=== PATIENT | female | born 1995 | race Caucasian/White ===

== ENCOUNTER 2017-03-14 14:52 | Emergency (ER) | payer OTHER ==
[2017-03-14 15:12] VITALS: BP 102/65; PULSE 103; TEMP 98.3; BMI 18.0
[2017-03-14] MEDS ORDERED: morphine CARPU-JECT 4 MG/1 ML DISP.SYRIN IVPUSH ONE (18:44)
--- NOTE | 2017-03-14 18:46 | PDOC ---
Attending Attestation - Resident Resident Name: Michelle Lincoln - ED Attending Attestation I have performed the following: I have examined & evaluated the patient, The case was reviewed & discussed with the resident, I agree w/resident's findings & plan, Exceptions are as noted - HPI HPI: 21 yo F presents with recurrent bartholin cyst. She states she has been having pain for past 2 days with swelling. She states that it has been drained in the past, had to have the word catheter removed early because it was too difficult to sit, very painful. Denies fever. - Physicial Exam PE: GENERAL: Awake, alert, and fully oriented, in no acute distress HEAD: No signs of trauma EYES: PERRLA, EOMI, sclera anicteric, conjunctiva clear ENT: Auricles normal inspection, hearing grossly normal, nares patent, oropharynx clear without exudates. Moist mucosa NECK: Normal ROM, supple, no lymphadenopathy, JVD, or masses LUNGS: Breath sounds equal, clear to auscultation bilaterally. No wheezes, and no crackles HEART: Regular rate and rhythm, normal S1 and S2, no murmurs, rubs or gallops ABDOMEN: Soft, nontender, normoactive bowel sounds. No guarding, no rebound. No masses EXTREMITIES: Normal range of motion, no edema. No clubbing or cyanosis. No cords, erythema, or tenderness NEUROLOGICAL: Cranial nerves II through XII grossly intact. Normal speech, normal gait SKIN: Warm, Dry, normal turgor, no rashes or lesions noted. : +R labial swelling and tenderness with small, deep indurated area. - Medical Decision Making Attempted I&D of the bartholin, unable to obtain any drainage. Also attempted needle aspiration. Aborted any further attempts due to pain discomfort and inability to get any drainage. D/w manufacturing project manager, stated that it may be too early to drain - recommended either keflex, sitz baths, and f/u (patient has appt in 3 days), or can see patient in ED in 1 hour. D/w patient, she prefers abx and outpatient f/u.
[2017-03-14] MEDS ORDERED: morphine SULFATE 4 MG/ML VIAL ONE (18:49)
--- NOTE | 2017-03-14 18:55 | PDOC ---
History of Present Illness - General Chief Complaint: Abscess Boil Stated Complaint: VAGINAL PAIN Time Seen by Provider: 03/14/17 17:34 - History of Present Illness Initial Comments: 03/14/17 18:44 21yo young woman who presents with recurrent R bartholin abscess. Patient had abscess in that location 1 month ago, which was I&D. A Word catheter was placed , but she only tolerated it for 2 days and was removed by her DECISION UNIT RN (Dr. Atkins). Reports she noticed increased painful swelling in same location. Denies any fever or chills. Past History - Past Medical History Allergies/Adverse Reactions: Allergies Allergy/AdvReac Type Severity Reaction Status Date / Time No Known Drug Allergies Allergy Verified 03/14/17 15:12 SEAFOOD Allergy Hives Uncoded 03/14/17 15:12 Home Medications: Ambulatory Orders Cephalexin [Keflex] 500 mg PO Q6H #28 capsule 03/14/17 Cephalexin [Keflex] 500 mg PO Q6H #28 capsule 03/14/17 Oxycodone HCl/Acetaminophen [Percocet 5-325 mg Tablet] 1 tab PO Q6H PRN #20 tablet MDD 4 tabs 03/14/17 Asthma: Yes COPD: No - Immunization History Immunization Up to Date: Yes - Suicide/Smoking/Psychosocial Hx Smoking Status: No Smoking History: Never smoked Number of Cigarettes Smoked Daily: 0 Hx Alcohol Use: No Drug/Substance Use Hx: No Substance Use Type: None *Physical Exam - Vital Signs Last Vital Signs Temp Pulse Resp BP Pulse Ox 98.3 F 103 H 20 102/65 98 03/14/17 15:09 03/14/17 15:09 03/14/17 15:09 03/14/17 15:09 03/14/17 17:15 - Physical Exam General Appearance: Yes: Nourished, Appropriately Dressed. No: Apparent Distress Female Pelvic Exam: positive: other (R bartholin abscess approximately 1 x 1cm, ttp, no lymphangitic spread) Procedures - Incision and Drainage I&D Site: Right: Bartholin Betadine cleansed: No (Chloroprep used (Reports Betadine allergy)) Anesthesia: 1% Lidocaine Blade Size: 15 Attempts: 2 Plain Packing: No Progress: 03/14/17 19:34 A 5mm stab incision was made, however was not able to drain the abscess as it was very deep and mobile. Two attempts were made, but patient was not tolerating the procedure despite local anesthetic with 1% lidocaine. Medical Decision Making - Medical Decision Making 03/14/17 19:39 21yo woman with recurrent and painful Right Bartholin abscess that was unable to be drained by I&D. Offered patient to wait for on-call DECISION UNIT RN to evaluate patient, however she was requesting to be d/c. On-call DECISION UNIT RN (Dr. Blandon) suggested to start patient on Keflex and do Sitz baths until her Bar Roller appointment on Thursday. Patient in agreement with plan and will return to ED if symptoms worsen or she develops signs of infection. Patient declined Percocet for pain control. 03/14/17 19:47 *DC/Admit/Observation/Transfer Diagnosis at time of Disposition: Abscess of Bartholin's gland - Prescriptions Prescriptions: Cephalexin [Keflex] 500 mg PO Q6H #28 capsule Cephalexin [Keflex] 500 mg PO Q6H #28 capsule Oxycodone HCl/Acetaminophen [Percocet 5-325 mg Tablet] 1 tab PO Q6H PRN #20 tablet MDD 4 tabs PRN Reason: Pain - Referrals Referrals: Sofía Abdi MD [Staff Physician] - - Patient Instructions Printed Discharge Instructions: DI for Bartholin Gland Cyst Additional Instructions: You have a right Bartholin cyst. Make a Sitz bath using warm water and epsom salts, and submerge yourself at least 2-3 inches. Do this 2-3 times per day to help draw out the cyst. Drainage from the site is expected. Use gauze and/or pads to absorb any drainage. Take Keflex 500mg (an antibiotic) 4 times per day (that is every 6 hours) for 7 days. You can take Tylenol for the pain. Follow-up with your FRAME ALIGNER on Thursday. Let her know that you were started on Keflex. Please return to the Emergency Department if you have worsening symptoms, increase swelling, redness, fever, chills, or any new or concerning symptoms. - Post Discharge Activity
== END 2017-03-14 19:31 | disposition home or self-care (01) ==
LOC: JER 14:52
PROC: 0U9L0ZZ Drainage of Vestibular Gland, Open Approach (ICD-10-PCS; principal; 2017-03-14)
DX: N75.1 Abscess of Bartholin's gland (principal)
CPT/HCPCS: 99282-25

== ENCOUNTER 2017-07-06 11:03 | Emergency (ER) | payer OTHER ==
[2017-07-06 11:13] VITALS: BP 111/72; PULSE 86; TEMP 98.4; BMI 19.2
--- NOTE | 2017-07-06 12:07 | PDOC ---
History of Present Illness - General Chief Complaint: Pain Stated Complaint: CHEST PAIN Time Seen by Provider: 07/06/17 11:51 History Source: Patient Exam Limitations: No Limitations - History of Present Illness Initial Comments: 07/06/17 12:03 this is a 21-year-old woman without significant past medical history of presents emergency Department with right-sided chest pain starting upon awaking this morning. Patient describes pain as a deep ache in the right chest. States she has not eaten and she is not experiencing any hunger as of yet today. She states nothing makes the pain better but deep breath makes the pain increased. She denies any fevers, chills, smoking, shortness of breath, abdominal pain, control use, period of inactivity, recent travel, surgeries. Past History - Past Medical History Allergies/Adverse Reactions: Allergies Allergy/AdvReac Type Severity Reaction Status Date / Time No Known Drug Allergies Allergy Verified 07/06/17 11:09 SEAFOOD Allergy Hives Uncoded 07/06/17 11:09 Home Medications: Ambulatory Orders NK [No Known Home Medication] 07/06/17 Asthma: Yes COPD: No - Immunization History Immunization Up to Date: Yes - Suicide/Smoking/Psychosocial Hx Smoking Status: No Smoking History: Never smoked Number of Cigarettes Smoked Daily: 0 Information on smoking cessation initiated: No Hx Alcohol Use: No Drug/Substance Use Hx: No Substance Use Type: None Review of Systems - Review of Systems Able to Perform ROS?: Yes Is the patient limited Micronesian proficient: No Constitutional: No: Symptoms Reported HEENTM: Yes: See HPI Respiratory: Yes: See HPI Cardiac (ROS): Yes: See HPI ABD/GI: No: Symptoms Reported : No: Symptoms Reported Musculoskeletal: No: Symptoms Reported Integumentary: No: Symptoms Reported Neurological: No: Symptoms reported Endocrine: No: Symptoms Reported Hematologic/Lymphatic: No: Symptoms Reported *Physical Exam - Vital Signs Last Vital Signs Temp Pulse Resp BP Pulse Ox 98.4 F 86 18 111/72 100 07/06/17 11:11 07/06/17 11:11 07/06/17 11:11 07/06/17 11:11 07/06/17 11:11 - Physical Exam General Appearance: Yes: Appropriately Dressed. No: Apparent Distress HEENT: positive: Normal ENT Inspection Neck: positive: Trachea midline, Supple Respiratory/Chest: positive: Lungs Clear, Decreased Breath Sounds (right lower lobe), Dullness (right lower lobe). negative: Respiratory Distress, Accessory Muscle Use Cardiovascular: positive: Regular Rhythm, Regular Rate. negative: Murmur Gastrointestinal/Abdominal: positive: Normal Bowel Sounds, Soft. negative: Tender Musculoskeletal: positive: Normal Inspection. negative: CVA Tenderness Extremity: positive: Normal Capillary Refill, Normal Inspection, Normal Range of Motion Integumentary: positive: Normal Color, Dry, Warm Neurologic: positive: Alert, Normal Response, Motor Strength 08/01 ED Treatment Course - LABORATORY CBC & Chemistry Diagram: 07/06/17 12:09 07/06/17 12:09 - RADIOLOGY Radiology Studies Ordered: Category Date Time Status CHEST PA & LAT [RAD] Stat Radiology 07/06/17 11:59 Ordered Medical Decision Making - Medical Decision Making 07/06/17 12:06 A/P: 21-year-old female without medical history presents with right sided chest pain since awakening Diminished breath sounds at the right lower lobe Dullness to percussion over the right lower lobe Speaking full sentences RRR. No murmur, rub or gallop noted Abdomen soft nontender nondistended Labs including d-dimer, chest x-ray, EKG, urinalysis 07/06/17 14:00 Chest x-ray as read by me: No infiltrate or consolidation present. Ankles are clear. Thoracic scoliosis present. Normal cardiac silhouette. No evidence of pneumothorax. The visualized osseous structures intact Laboratory testing is normal with the exception of 2+blood in urine. patient is currently menstruating. Discharge patient home with follow-up with her primary doctor. *DC/Admit/Observation/Transfer Diagnosis at time of Disposition: Atypical chest pain - Discharge Dispostion Disposition: HOME Condition at time of disposition: Stable Admit: No - Referrals Referrals: ON STAFF,NOT [Primary Care Provider] - - Patient Instructions Printed Discharge Instructions: DI for Atypical Chest Pain Additional Instructions: Laboratory testing and radiologic findings are normal here. Please follow-up to primary doctor for continued evaluation of this pain Return to emergency department for worsening pain, shortness of breath, dizziness, fevers, chills or any other concerns. - Post Discharge Activity
[2017-07-06 12:20] LABS: BASO % 0.2 % (0-2.0); EOS % 4.1 % (0-4.5); HEMATOCRIT 37.2 % (32.4-45.2); HEMOGLOBIN 12.3 GM/dL (10.7-15.3); MONO % 7.1 % (3.8-10.2); NEUT % 57.6 % (42.8-82.8); PLATELET COUNT 320 K/MM3 (134-434); RBC 4.54 M/mm3 (3.60-5.2); RDW 13.6 % (11.6-15.6); WHITE BLOOD COUNT 5.4 K/mm3 (4.0-10.0)
[2017-07-06 12:48] LABS: ALBUMIN 3.8 g/dl (3.4-5.0); ANION GAP 4 (8-16); BILIRUBIN,TOTAL 0.3 mg/dL (0.2-1.0); BLOOD UREA NITROGEN 10 mg/dL (7-18); CALCIUM 8.9 mg/dL (8.5-10.1); CHLORIDE 108 mmol/L (98-107); CO2 28 mmol/L (21-32); CREATININE 0.6 mg/dL (0.55-1.02); GLUCOSE,RANDOM 93 mg/dL (74-106); POTASSIUM 4.4 mmol/L (3.5-5.1); SGOT/AST 15 U/L (15-37); SGPT/ALT 22 U/L (12-78); SODIUM 140 mmol/L (136-145); TOT PROT 7.2 g/dl (6.4-8.2)
[2017-07-06 12:49] LABS: URINE APPEARANCE CLEAR; URINE BILIRUBIN NEGATIVE (<2.0 mg/dL); URINE BLOOD 3+ (NEGATIVE); URINE COLOR YELLOW; URINE GLUCOSE (UA) NEGATIVE (NEGATIVE); URINE KETONE NEGATIVE (NEGATIVE); URINE LEUK ESTERASE TRACE (NEGATIVE); URINE NITRITE NEGATIVE (NEGATIVE); URINE UROBILINOGEN NEGATIVE mg/dL (0.2-1.0)
[2017-07-06 12:50] LABS: ALK PHOS 95 U/L (45-117)
[2017-07-06 12:51] LABS: HCG,QUALITATIVE URINE NEGATIVE
[2017-07-06 12:58] LABS: URINE PROTEIN 1+ (NEGATIVE)
[2017-07-06 12:59] LABS: EPI CELLS RARE /HPF (FEW); URINE MUCUS FEW
--- NOTE | 2017-07-06 23:44 | EKG ---
Test Reason : Blood Pressure : / mmHG Vent. Rate : 067 BPM Atrial Rate : 067 BPM P-R Int : 124 ms QRS Dur : 090 ms QT Int : 400 ms P-R-T Axes : 067 069 043 degrees QTc Int : 422 ms NORMAL SINUS RHYTHM POSSIBLE LEFT ATRIAL ENLARGEMENT RSR' OR QR PATTERN IN V1 SUGGESTS RIGHT VENTRICULAR CONDUCTION DELAY BORDERLINE ECG NO PREVIOUS ECGS AVAILABLE Confirmed by WILLIE XIAO MD ([id number]) on 07/06/2017 11:44:09 PM Referred By: Confirmed By:WILLIE XIAO MD
== END 2017-07-06 14:06 | disposition home or self-care (01) ==
LOC: JERFT 11:03
DX: R07.89 Other chest pain (principal)
CPT/HCPCS: 36415; 71046-TC-FY; 80053; 81003; 81015; 82550; 83735; 84484; 84703; 85025; 85379; 93005; 93010; 99282-25

== ENCOUNTER 2018-03-16 21:22 | Emergency (ER) | payer OTHER ==
[2018-03-16 21:29] VITALS: BP 112/59; PULSE 87; TEMP 98.3; BMI 19.0
--- NOTE | 2018-03-16 21:29 | PDOC ---
Rapid Medical Evaluation Chief Complaint: Pain, Acute Medical Evaluation: Allergies Allergy/AdvReac Type Severity Reaction Status Date / Time No Known Drug Allergies Allergy Verified 10/29/17 13:01 SEAFOOD Allergy Hives Uncoded 10/29/17 13:01 03/16/18 21:26 I have performed a brief in-person evaluation of this patient. The patient presents with a chief complaint of:12 weeks preg with abd pain / + dysuruia / no bleeding Pertinent physical exam findings: abd soft/ no CVAT I have ordered the following: UA/ Urine Cx The patient will proceed to the ED for further evaluation. 03/16/18 21:29
[2018-03-16 21:49] LABS: URINE APPEARANCE CLEAR; URINE BILIRUBIN NEGATIVE (<2.0 mg/dL); URINE COLOR YELLOW; URINE GLUCOSE (UA) NEGATIVE (NEGATIVE); URINE KETONE TRACE (NEGATIVE); URINE LEUK ESTERASE 1+ (NEGATIVE); URINE NITRITE NEGATIVE (NEGATIVE); URINE PROTEIN NEGATIVE (NEGATIVE); URINE UROBILINOGEN NEGATIVE mg/dL (0.2-1.0)
[2018-03-16 22:13] LABS: EPI CELLS RARE /HPF (FEW); URINE BACTERIA RARE /hpf (NONE SEEN); URINE MUCUS RARE
--- NOTE | 2018-03-16 23:22 | PDOC ---
History of Present Illness - General Chief Complaint: Pain, Acute Stated Complaint: 12 WEEKS ABD PAIN Time Seen by Provider: 03/16/18 23:10 History Source: Patient - History of Present Illness Initial Comments: 03/16/18 23:25 22 year old female c/o suprapubic pain, dysuria x 1 day with abdominal discomfort. Had + IUP on u/s with breaker oiler. denies vaginal bleeding, flank pain, fever/ chills, NVD breaker oiler dr. snowden no pmhx 03/16/18 23:47 Past History - Past Medical History Allergies/Adverse Reactions: Allergies Allergy/AdvReac Type Severity Reaction Status Date / Time No Known Drug Allergies Allergy Verified 03/16/18 21:29 SEAFOOD Allergy Hives Uncoded 03/16/18 21:29 Home Medications: Ambulatory Orders Nitrofurantoin Monohyd/M-Cryst [Macrobid -] 100 mg PO BID #20 capsule 03/17/18 Asthma: Yes COPD: No - Immunization History Immunization Up to Date: Yes - Suicide/Smoking/Psychosocial Hx Smoking Status: No Smoking History: Never smoked Have you smoked in the past 12 months: No Number of Cigarettes Smoked Daily: 0 Information on smoking cessation initiated: No Hx Alcohol Use: No Drug/Substance Use Hx: No Substance Use Type: None Review of Systems - Review of Systems Able to Perform ROS?: Yes Is the patient limited Bermudian proficient: No Constitutional: No: Symptoms Reported, See HPI, Chills, Diaphoresis, Fever, Loss of Appetite, Malaise, Night Sweats, Weakness, Weight Stable, Unintentional Wgt. Loss, Unexplained wgt Loss, Other : Yes: Dysuria, Other (suprapubic pain) Musculoskeletal: No: Symptoms Reported, See HPI, Back Pain, Gout, Joint Pain, Joint Swelling, Muscle Pain, Muscle Weakness, Neck Pain, Joint Stiffness, Other *Physical Exam - Vital Signs Last Vital Signs Temp Pulse Resp BP Pulse Ox 98.3 F 87 16 112/59 L 100 03/16/18 21:27 03/16/18 21:27 03/16/18 21:27 03/16/18 21:27 03/16/18 21:27 - Physical Exam General Appearance: Yes: Appropriately Dressed Gastrointestinal/Abdominal: positive: Normal Bowel Sounds, Soft, Other (mild suprapubic pain). negative: Tender Moderate Sedation - Procedure Monitoring Vital Signs: Procedure Monitoring Vital Signs Temperature 98.3 F 03/16/18 21:27 Pulse Rate 87 03/16/18 21:27 Respiratory Rate 16 03/16/18 21:27 Blood Pressure 112/59 L 03/16/18 21:27 O2 Sat by Pulse Oximetry (%) 100 03/16/18 21:27 ED Treatment Course - LABORATORY CBC & Chemistry Diagram: 03/17/18 00:16 - ADDITIONAL ORDERS Additional order review: Laboratory Results 03/16/18 21:35 Urine Color Yellow Urine Appearance Clear Urine pH 5.0 Ur Specific [place] 1.017 Urine Protein Negative Urine Glucose (UA) Negative Urine Ketones Trace H Urine Blood Negative Urine Nitrite Negative Urine Bilirubin Negative Urine Urobilinogen Negative Ur Leukocyte Esterase 1+ H Urine WBC (Auto) 1 Urine RBC (Auto) 1 Ur Epithelial Cells Rare Urine Bacteria Rare Urine Mucus Rare Progress Note - Progress Note Progress Note: A: pelvic pain P: UA/ ucx pelvic us cbc beta Medical Decision Making - Medical Decision Making 03/17/18 00:59 Live intrauterine gestation at 11 weeks and 2 day *DC/Admit/Observation/Transfer Diagnosis at time of Disposition: Pelvic pain Normal IUP (intrauterine ) on ultrasound Qualifiers: Trimester: first trimester Qualified Code(s): Z34.91 - Encounter for supervision of normal , unspecified, first trimester UTI (urinary tract infection) Qualifiers: Urinary tract infection type: acute cystitis Hematuria presence: without hematuria Qualified Code(s): N30.00 - Acute cystitis without hematuria - Discharge Dispostion Disposition: HOME - Prescriptions Prescriptions: Nitrofurantoin Monohyd/M-Cryst [Macrobid -] 100 mg PO BID #20 capsule - Referrals - Patient Instructions Printed Discharge Instructions: Urinary Tract Infection Additional Instructions: drink plenty of fluids take macrobid as prescribed. follow up with your obgyn as soon as possible. - Post Discharge Activity Forms/Work/School Notes: Back to Work
[2018-03-17 00:25] LABS: BASO % 0.3 % (0-2.0); EOS % 3.1 % (0-4.5); HEMATOCRIT 34.8 % (32.4-45.2); HEMOGLOBIN 12.2 GM/dL (10.7-15.3); LYMPH % 24.2 % (8-40); MCH 28.7 pg (25.7-33.7); MCHC 35.1 g/dl (32.0-36.0); MEAN CELL VOLUME 81.8 fl (80-96); MEAN PLT VOLUME 8.6 fl (7.5-11.1); MONO % 6.6 % (3.8-10.2); NEUT % 65.8 % (42.8-82.8); PLATELET COUNT 287 K/MM3 (134-434); RBC 4.25 M/mm3 (3.60-5.2); RDW 13.4 % (11.6-15.6); WHITE BLOOD COUNT 7.6 K/mm3 (4.0-10.0)
== END 2018-03-17 02:13 | disposition home or self-care (01) ==
LOC: JER 21:22
DX: O26.891 Other specified pregnancy related conditions, first trimester (principal); O23.31 Infections of other parts of urinary tract in pregnancy, first trimester; Z3A.12 12 weeks gestation of pregnancy
CPT/HCPCS: 36415; 76801-TC; 81003; 81015; 84702; 85025; 86850; 86900; 86901; 87077; 87086; 99282-25

== ENCOUNTER 2018-04-05 18:06 | Emergency (ER) | payer OTHER ==
--- NOTE | 2018-04-05 18:17 | PDOC ---
Rapid Medical Evaluation Chief Complaint: Abscess Boil Time Seen by Provider: 04/05/18 18:15 Medical Evaluation: Allergies Allergy/AdvReac Type Severity Reaction Status Date / Time No Known Drug Allergies Allergy Verified 03/16/18 21:29 SEAFOOD Allergy Hives Uncoded 03/16/18 21:29 04/05/18 18:15 I have done a brief in-person assessment of this patient. The patient presents with a chief complaint of vaginal abscess x 3 days. G1, 14 weeks with discomfort due to vaginal abscess. Denies fever or chills Pertinent physical exam findings NAD unlabored breathing neurologically intact, a+o x 3 I have ordered the following: none The patient will proceed to the Ed for further evaluation. Dx: vaginal abscess 04/05/18 21:44 Discharge Disposition - Diagnosis Bartholin cyst - Discharge Dispostion Disposition: HOME - Referrals - Patient Instructions Printed Discharge Instructions: DI for Incision and Drainage of a Skin Abscess Additional Instructions: please return to the ER in 2 days for wound reevlaution and packing removal. continue sitz bath and hot showers. follow up with your ob/ industrial laborer as scheduled - Post Discharge Activity Work/School Note: Back to Work
[2018-04-05 18:21] VITALS: BP 102/59; PULSE 114; TEMP 98.2; BMI 19.6
--- NOTE | 2018-04-05 20:03 | PDOC ---
History of Present Illness - General Chief Complaint: Abscess Boil Stated Complaint: ABSCESS VAGINA (14 WKS ) Time Seen by Provider: 04/05/18 18:15 History Source: Patient - History of Present Illness Initial Comments: 04/05/18 20:56 22 year old female c/o right labial swelling and pain x3 days. reports that sitz bath is not helping. history of bartholin cyst last one i&D 3 month ago. patient is 14 week s confirmed IUP. denies vaginal bleeding, pelvic pain, urinary symptoms or abdominal pain at this time. denies fever/ chills Past History - Past Medical History Allergies/Adverse Reactions: Allergies Allergy/AdvReac Type Severity Reaction Status Date / Time No Known Drug Allergies Allergy Verified 03/16/18 21:29 SEAFOOD Allergy Hives Uncoded 03/16/18 21:29 Home Medications: Ambulatory Orders Nitrofurantoin Monohyd/M-Cryst [Macrobid -] 100 mg PO BID #20 capsule 03/17/18 Asthma: Yes COPD: No - Immunization History Immunization Up to Date: Yes - Suicide/Smoking/Psychosocial Hx Smoking Status: No Smoking History: Never smoked Have you smoked in the past 12 months: No Number of Cigarettes Smoked Daily: 0 Information on smoking cessation initiated: No Hx Alcohol Use: No Drug/Substance Use Hx: No Substance Use Type: None *Physical Exam - Vital Signs Last Vital Signs Temp Pulse Resp BP Pulse Ox 98.2 F 114 H 20 102/59 L 99 04/05/18 18:16 04/05/18 18:16 04/05/18 18:16 04/05/18 18:16 04/05/18 18:16 - Physical Exam General Appearance: Yes: Appropriately Dressed Respiratory/Chest: positive: Lungs Clear, Normal Breath Sounds Rectal Exam: positive: other (right labial erythema with fluctuant mass. + right bartholin cyst) Moderate Sedation - Procedure Monitoring Vital Signs: Procedure Monitoring Vital Signs Temperature 98.2 F 04/05/18 18:16 Pulse Rate 114 H 04/05/18 18:16 Respiratory Rate 20 04/05/18 18:16 Blood Pressure 102/59 L 04/05/18 18:16 O2 Sat by Pulse Oximetry (%) 99 04/05/18 18:16 Procedures - Incision and Drainage I&D Site: Right: Bartholin Anesthesia: 2% Lidocaine Blade Size: 11 Iodinated Packin/4 in Plain Packing: Yes Dressing: Yes Progress: 04/05/18 21:01 drained 8 ml of pus . packing left in. patient is following up ob Dr. snowden tomorrow. *DC/Admit/Observation/Transfer Diagnosis at time of Disposition: Bartholin cyst - Discharge Dispostion Disposition: HOME - Referrals - Patient Instructions Printed Discharge Instructions: DI for Incision and Drainage of a Skin Abscess Additional Instructions: please return to the ER in 2 days for wound reevlaution and packing removal. continue sitz bath and hot showers. follow up with your ob/ assembly line driver as scheduled - Post Discharge Activity Forms/Work/School Notes: Back to Work
[2018-04-05] MEDS ORDERED: LIDOCAINE HCL 2% (50ML VIAL) SQ ONE (20:04)
[2018-04-05 20:42] LABS: URINE APPEARANCE SLCLOUDY; URINE BILIRUBIN NEGATIVE (<2.0 mg/dL); URINE COLOR DKYELLOW; URINE GLUCOSE (UA) NEGATIVE (NEGATIVE); URINE KETONE TRACE (NEGATIVE); URINE LEUK ESTERASE NEGATIVE (NEGATIVE); URINE NITRITE NEGATIVE (NEGATIVE); URINE PROTEIN NEGATIVE (NEGATIVE)
== END 2018-04-05 21:21 | disposition home or self-care (01) ==
LOC: JER 18:06
PROC: 0U9L0ZZ Drainage of Vestibular Gland, Open Approach (ICD-10-PCS; principal; 2018-04-05)
DX: N75.0 Cyst of Bartholin's gland (principal); O26.892 Other specified pregnancy related conditions, second trimester; Z3A.14 14 weeks gestation of pregnancy; J45.909 Unspecified asthma, uncomplicated
CPT/HCPCS: 81003; 99281-25